=== PATIENT | female | born 1975 ===

== ENCOUNTER 2021-04-28 11:34 | Outpatient (CLI) | payer OTHER ==
[~2021-04-28 11:34] MED LIST: DOCUSATE SODIU100 MG PO; Mylicon 125MG PO; OXYC1TAB9 PO; PRENATE ADVANCE PO
== END 2021-04-28 11:37 | disposition home or self-care (01) ==
LOC: PPH VACUNA 11:34
PROVIDERS: ATTEND Emergency Medicine Pediatric Emergency Medicine
DX: Z23 Encounter for immunization (principal)